=== PATIENT | male | born 1950 | race Two or more races ===

== ENCOUNTER → 2017-02-11 | Emergency (ER) | payer MEDICARE, OTHER ==
[~2017-02-11] MED LIST: LEVOFLOXACIN 250 MG TABLET (FP) ONE; LEVOFLOXACIN 250 MG TABLET (FP) PO ONE; LEVOFLOXACIN 500 MG TABLET (FP) ONE; LEVOFLOXACIN 750 MG TABLET PO SCH; metroNIDAZOLE 250 MG TABLET PO ONE
[2017-02-11 12:06] VITALS: BMI 29.3
--- NOTE | 2017-02-11 12:23 | PDOC ---
History of Present Illness - History of Present Illness Initial Comments: 02/11/17 13:37 The patient is a 66 year old male, peruvian speaking, with a significant past medical history of rectal fissure, gastritis, and GERD, who presents to the emergency department with hematochezia for 2 weeks with onset of diarrhea 10 days ago. The patient reports experiencing at least 3 episodes of loose stool daily which contains bright red blood. He denies any melena. He also reports a mild, intermittent suprapubic and right lower quadrant pain. The patient states he had an endoscopy and colonoscopy 2 months ago which the patient states were negative, "other than the rectal fissure." The patient states he was taking aspirin, however, reports discontinuing the aspiring when he noticed the blood in his stool. He denies hemorrhoids or itching of his anus. Secondarily, the patient reports experiencing chills and diaphoresis at night before bed. He denies chest pain, shortness of breath, headache and dizziness. He denies fever, nausea, vomit, and constipation. He denies dysuria, frequency, urgency and hematuria. Allergies: NKDA PCP - Dr. 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) Appendectomy: No Cardiac Surgery: No Cholecystectomy: No Lung Surgery: No Neurologic Surgery: No Orthopedic Surgery: No - Immunization History Td Vaccination: No Immunization Up to Date: Yes - Psycho/Social/Smoking Cessation Hx Anxiety: No Suicidal Ideation: No Smoking Status: No Smoking History: Never smoked Have you smoked in the past 12 months: No Number of Cigarettes Smoked Daily: 0 If you are a former smoker, when did you quit?: 10YRS AGO Cigars Per Day: 0 Information on smoking cessation initiated: No Hx Alcohol Use: No Drug/Substance Use Hx: No Substance Use Type: None Hx Substance Use Treatment: No <Johnathan Vergara - Last Filed: 02/11/17 19:32> - Past Medical History Allergies/Adverse Reactions: Allergies Allergy/AdvReac Type Severity Reaction Status Date / Time No Known Allergies Allergy Verified 02/11/17 12:06 Home Medications: Ambulatory Orders Lisinopril/Hydrochlorothiazide [Zestoretic 10-12.5 Tablet] 1 each PO DAILY #0 tablet 12/04/11 Simvastatin [Zocor -] 10 mg PO DAILY 11/19/15 Tamsulosin HCl [Flomax -] 0.4 mg PO DAILY 11/19/15 Aspirin [ASA -] 81 mg PO DAILY 03/10/16 Pantoprazole Sodium [Protonix] 40 mg PO DAILY 03/10/16 Ciprofloxacin [Cipro (Restricted To Id)] 750 mg PO BID #20 tablet 02/11/17 Metformin HCl 500 mg PO BID 02/11/17 Metronidazole [Flagyl -] 500 mg PO TID #30 tablet 02/11/17 Review of Systems - Review of Systems Able to Perform ROS?: Yes Comments:: 02/11/17 13:52 GENERAL/CONSTITUTIONAL: No fever or chills. No weakness. HEAD, EYES, EARS, NOSE AND THROAT: No change in vision. No ear pain or discharge. No sore throat. CARDIOVASCULAR: No chest pain or shortness of breath. RESPIRATORY: No cough, wheezing, or hemoptysis. GASTROINTESTINAL: (+) hematochezia and suprapbic abdominal pain. No nausea, vomiting, diarrhea or constipation. GENITOURINARY: No dysuria, frequency, or change in urination. MUSCULOSKELETAL: No joint or muscle swelling or pain. No neck or back pain. SKIN: No rash NEUROLOGIC: No headache, vertigo, loss of consciousness, or change in strength/ sensation. ENDOCRINE: No increased thirst. No abnormal weight change. HEMATOLOGIC/LYMPHATIC: No anemia, easy bleeding, or history of blood clots. ALLERGIC/IMMUNOLOGIC: No hives or skin allergy. <Taina Zamora - Last Filed: 02/11/17 18:57> *Physical Exam - Vital Signs Last Vital Signs Temp Pulse Resp BP Pulse Ox 98.2 F 89 18 107/57 100 02/11/17 12:04 02/11/17 12:04 02/11/17 12:04 02/11/17 12:04 02/11/17 12:04 - Physical Exam Comments: 02/11/17 13:53 GENERAL: Awake, alert, and fully oriented, in no acute distress HEAD: No signs of trauma EYES: PERRLA, EOMI, sclera anicteric, conjunctiva clear ENT: Auricles normal inspection, hearing grossly normal, nares patent, oropharynx clear without exudates. Moist mucosa NECK: Normal ROM, supple, no lymphadenopathy, JVD, or masses LUNGS: Breath sounds equal, clear to auscultation bilaterally. No wheezes, and no crackles HEART: Regular rate and rhythm, normal S1 and S2, no murmurs, rubs or gallops ABDOMEN: Soft, nontender, normoactive bowel sounds. No guarding, no rebound. No masses EXTREMITIES: Normal range of motion, no edema. No clubbing or cyanosis. No cords, erythema, or tenderness NEUROLOGICAL: Cranial nerves II through XII grossly intact. Normal speech, normal gait SKIN: Warm, Dry, normal turgor, no rashes or lesions noted. <Taina Zamora - Last Filed: 02/11/17 18:57> - Vital Signs Last Vital Signs Temp Pulse Resp BP Pulse Ox 98.2 F 89 18 107/57 100 02/11/17 12:04 02/11/17 12:04 02/11/17 12:04 02/11/17 12:04 02/11/17 12:04 <Johnathan Vergara - Last Filed: 02/11/17 19:32> Heart Score/ECG Review - ECG Intrepretation Comment:: 02/11/17 13:00 EKG was read by Dr. Vergara at 12:25 Impression: Normal sinus rhythm <Taina Zamora - Last Filed: 02/11/17 18:57> ED Treatment Course - LABORATORY CBC & Chemistry Diagram: 02/11/17 12:54 02/11/17 13:45 - RADIOLOGY Radiograph Interpretation: 02/11/17 15:22 CXR was read by Dr. Friend at 13:16 Impression: No acute pathology. No significant changes. Abdomen/Pelvis CT was read by Dr. Branch at 18:21 Impression: In comparison to a prior CT frm 12/07/15, interval development of concentric rectal wall thickening is noted with associated perirectal edema consistent with inflammation or infection. There us also probable interval development of cystitis. <Taina Zamora - Last Filed: 02/11/17 18:57> - LABORATORY CBC & Chemistry Diagram: 02/11/17 12:54 02/11/17 13:45 <Johnathan Vergara - Last Filed: 02/11/17 19:32> Medical Decision Making - Medical Decision Making 02/11/17 18:55 The patient is a 66 year old male who presents with hematochezia, loose stools and night sweats for 2 weeks. The patients medical history is significant for rectal fissure, GERD, and gastritis I will obtain abdomen pelvis CT, CXR, stool culture to rule out diverticulitis, gastritis. <Taina Zamora - Last Filed: 02/11/17 18:57> *DC/Admit/Observation/Transfer - Attestations Scribe Attestion: 02/11/17 13:53 Documentation prepared by Taina Zamora, acting as medical technical writer for Johnathan Vergara MD <Taina Zamora - Last Filed: 02/11/17 18:57> - Attestations Physician Attestion: 02/11/17 12:23 I, Dr. Johnathan Vergara, attest that this document has been prepared under my direction and personally reviewed by me in its entirety. I further attest, that it accurately reflects all work, treatment, procedures and medical decision -making performed by me. <Johnathan Vergara - Last Filed: 02/11/17 19:32> Diagnosis at time of Disposition: Proctitis - Discharge Dispostion Disposition: HOME Condition at time of disposition: Stable - Prescriptions Prescriptions: Ciprofloxacin [Cipro (Restricted To Id)] 750 mg PO BID #20 tablet Metronidazole [Flagyl -] 500 mg PO TID #30 tablet - Referrals Referrals: Isaiah Garvey MD [Primary Care Provider] - - Patient Instructions Printed Discharge Instructions: DI for Rectal Bleeding Additional Instructions: Dez, you have an infection of your rectum. It will take at least a week of antibiotics to start clearing up. Follow up with your [facility]. Return to us if worse or problems. Carlos- DR. Johnathan Vergara
[2017-02-11 13:57] LABS: BASOPHIL 0.5 % (0-2.0); MCH 26.1 pg (25.7-33.7); MCHC 33.3 g/dl (32.0-35.9); MEAN CELL VOLUME 78.5 fl (80-96); MEAN PLT VOLUME 8.2 fl (7.5-11.1); PLATELET COUNT 200 K/MM3 (134-434); RDW 13.6 % (11.9-15.9); WHITE BLOOD COUNT 6.5 K/mm3 (4.0-10.0)
--- NOTE | 2017-02-11 14:01 | EKG ---
Test Reason : Blood Pressure : / mmHG Vent. Rate : 087 BPM Atrial Rate : 087 BPM P-R Int : 142 ms QRS Dur : 080 ms QT Int : 346 ms P-R-T Axes : 025 -20 018 degrees QTc Int : 416 ms NORMAL SINUS RHYTHM NORMAL ECG WHEN COMPARED WITH ECG OF 04-DEC-2011 18:10, NO SIGNIFICANT CHANGE WAS FOUND Confirmed by ERYN CUNNINGHAM MD ([id number]) on 02/11/2017 2:01:03 PM Referred By: Confirmed By:ERYN CUNNINGHAM MD
[2017-02-11 14:20] LABS: ALBUMIN 3.6 g/dl (3.4-5.0); ANION GAP 12 (8-16); CALCIUM 9.3 mg/dL (8.5-10.1); CO2 25 mmol/L (21-32); COCKROFT - GAULT 99.59; CREATININE 1.1 mg/dL (0.7-1.3); GLUCOSE,RANDOM 133 mg/dL (74-106); SGOT/AST 15 U/L (15-37); SGPT/ALT 16 U/L (12-78)
[2017-02-11 14:23] LABS: INR 0.98 (0.82-1.09); PROTHROMBIN TIME (PATIENT) 10.8 SEC (9.98-11.88)
[2017-02-11 14:24] LABS: ALK PHOS 80 U/L (45-117); BILIRUBIN,TOTAL 0.4 mg/dL (0.2-1.0); TOT PROT 6.7 g/dl (6.4-8.2); TROPONIN I < 0.02 ng/ml (0.00-0.05)
[2017-02-11 19:02] VITALS: TEMP 98.6
[2017-02-11 20:10] VITALS: BP 131/91; PULSE 88
== END | disposition home or self-care (01) ==
LOC: JER 11:43
DX: K62.89 Other specified diseases of anus and rectum (principal); K60.2 Anal fissure, unspecified; K21.9 Gastro-esophageal reflux disease without esophagitis; I10 Essential (primary) hypertension; E11.9 Type 2 diabetes mellitus without complications; Z79.84 Long term (current) use of oral hypoglycemic drugs
CPT/HCPCS: 36415; 71010-TC; 74177-TC; 80053; 82550; 83690; 84484; 85025; 85610; 86850; 86900; 86901; 87045; 87046; 87205; 93005; 93010; 99284-25

== ENCOUNTER 2017-10-15 14:41 | Emergency (ER) | payer MEDICARE, OTHER ==
[2017-10-15 15:19] VITALS: BMI 28.5
--- NOTE | 2017-10-15 15:19 | PDOC ---
Rapid Medical Evaluation Time Seen by Provider: 10/15/17 15:13 Medical Evaluation: Allergies Allergy/AdvReac Type Severity Reaction Status Date / Time No Known Allergies Allergy Verified 02/11/17 12:06 10/15/17 15:13 I have performed a brief in-person evaluation of this patient. The patient presents with a chief complaint of: Diarrhea w/ abd pain and nausea x 2 weeks, no recent travel, sick contact or unusual food. Last abx 2 months ago for dental extraction. H/o HTN, DM, prostate CA s/p chemo/xrt Pertinent physical exam findings:Stable w/ benign abd I have ordered the following:cbc/labs/stool studies The patient will proceed to the ED for further evaluation. 10/15/17 15:18 Discharge Disposition - Referrals Referrals: Anup Mcknight MD [Primary Care Provider] - - Patient Instructions - Post Discharge Activity
--- NOTE | 2017-10-15 15:52 | PDOC ---
History of Present Illness - General History Source: Patient Exam Limitations: No Limitations - History of Present Illness Initial Comments: 10/15/17 17:28 The patient is a 67 year old male with a significant PMH of prostate CA, diabetes, HTN, and hyperlipidemia who presents to the emergency department with nausea diarrhea beginning approximately 2 weeks ago. The patient describes his diarrhea as soft and liquidy with no blood that usually comes on in the morning. He notes an associated crampy and nauseous sensation in his abdomen. The patient also notes that he has been intermittently sweaty recently, which he notes his Urologist stated may be a side effect of one of his medications. The patient denies any changes in his medication or diet. He denies any recent travel or sick contacts. He denies any changes in sexual partners. The patient denies chest pain, shortness of breath, headache and dizziness. Denies fever, chills, vomit, and constipation. Denies dysuria, frequency, urgency and hematuria. FMHx: Colon CA, Breast CA Allergies: NKA Past surgical history: Herniated disc repair. Social history: Former smoker (25 years ago). Minimal alcohol use. No reported drug use. PCP: Dr. Mcknight Oncologist: Dr. Brent Tidwell Urologist: Dr. 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) Appendectomy: No Cardiac Surgery: No Cholecystectomy: No Lung Surgery: No Neurologic Surgery: No Orthopedic Surgery: No - Immunization History Td Vaccination: No Immunization Up to Date: Yes - Suicide/Smoking/Psychosocial Hx Smoking Status: No Smoking History: Never smoked Have you smoked in the past 12 months: No Number of Cigarettes Smoked Daily: 0 If you are a former smoker, when did you quit?: 10YRS AGO Cigars Per Day: 0 Information on smoking cessation initiated: No Hx Alcohol Use: No Drug/Substance Use Hx: No Substance Use Type: None Hx Substance Use Treatment: No <Nabila David - Last Filed: 10/15/17 18:26> - Past Medical History Allergies/Adverse Reactions: Allergies Allergy/AdvReac Type Severity Reaction Status Date / Time No Known Allergies Allergy Verified 10/15/17 15:19 Home Medications: Ambulatory Orders Lisinopril/Hydrochlorothiazide [Zestoretic 10-12.5 Tablet] 1 each PO DAILY #0 tablet 12/04/11 Simvastatin [Zocor -] 10 mg PO DAILY 11/19/15 Tamsulosin HCl [Flomax -] 0.4 mg PO DAILY 11/19/15 Pantoprazole Sodium [Protonix] 40 mg PO DAILY 03/10/16 Metformin HCl 500 mg PO BID 02/11/17 Review of Systems - Review of Systems Able to Perform ROS?: Yes Comments:: 10/15/17 17:28 GENERAL/CONSTITUTIONAL: No fever or chills. No weakness. HEAD, EYES, EARS, NOSE AND THROAT: No change in vision. No ear pain or discharge. No sore throat. CARDIOVASCULAR: No chest pain or shortness of breath. RESPIRATORY: No cough, wheezing, or hemoptysis. GASTROINTESTINAL: (+) Diarrhea. (+) Nausea. (+) Cramping. No vomiting or constipation. GENITOURINARY: No dysuria, frequency, or change in urination. MUSCULOSKELETAL: No joint or muscle swelling or pain. No neck or back pain. SKIN: No rash NEUROLOGIC: No headache, vertigo, loss of consciousness, or change in strength/ sensation. ENDOCRINE: No increased thirst. No abnormal weight change. HEMATOLOGIC/LYMPHATIC: No anemia, easy bleeding, or history of blood clots. ALLERGIC/IMMUNOLOGIC: No hives or skin allergy. <Marlon Multani - Last Filed: 10/15/17 17:29> *Physical Exam - Vital Signs Last Vital Signs Temp Pulse Resp BP Pulse Ox 99.0 F 83 18 117/74 100 10/15/17 15:16 10/15/17 15:16 10/15/17 15:16 10/15/17 15:16 10/15/17 16:22 - Physical Exam Comments: 10/15/17 17:28 GENERAL: Awake, alert, and fully oriented, in no acute distress HEAD: No signs of trauma EYES: PERRLA, EOMI, sclera anicteric, conjunctiva clear ENT: Auricles normal inspection, hearing grossly normal, nares patent, oropharynx clear without exudates. Moist mucosa NECK: Normal ROM, supple, no lymphadenopathy, JVD, or masses LUNGS: Breath sounds equal, clear to auscultation bilaterally. No wheezes, and no crackles HEART: Regular rate and rhythm, normal S1 and S2, no murmurs, rubs or gallops ABDOMEN: (+) Slightly hyperactive bowel sounds. Soft, nontender. No guarding, no rebound. No masses EXTREMITIES: Normal range of motion, no edema. No clubbing or cyanosis. No cords, erythema, or tenderness NEUROLOGICAL: Cranial nerves II through XII grossly intact. Normal speech, normal gait SKIN: Warm, Dry, normal turgor, no rashes or lesions noted. <Marlon Multani - Last Filed: 10/15/17 17:29> - Vital Signs Last Vital Signs Temp Pulse Resp BP Pulse Ox 99.0 F 83 18 117/74 100 10/15/17 15:16 10/15/17 15:16 10/15/17 15:16 10/15/17 15:16 10/15/17 15:16 <Nabila David - Last Filed: 10/15/17 18:26> ED Treatment Course - LABORATORY CBC & Chemistry Diagram: 10/15/17 15:31 10/15/17 15:31 - ADDITIONAL ORDERS Additional order review: Laboratory Results 10/15/17 15:31 Sodium 139 Potassium 4.2 Chloride 105 Carbon Dioxide 23 Anion Gap 11 BUN 22 H Creatinine 1.2 Creat Clearance w eGFR > 60 Random Glucose 157 H Calcium 8.7 Total Bilirubin 0.3 D AST 12 L ALT 18 Alkaline Phosphatase 98 D Total Protein 6.8 Albumin 3.9 10/15/17 15:31 RBC 4.75 MCV 78.9 L MCHC 32.6 RDW 13.7 MPV 8.3 Neutrophils % 71.8 Lymphocytes % 15.9 Monocytes % 7.0 Eosinophils % 5.0 H Basophils % 0.3 <Marlon Multani - Last Filed: 10/15/17 17:29> - LABORATORY CBC & Chemistry Diagram: 10/15/17 15:31 10/15/17 15:31 <Nabila David - Last Filed: 10/15/17 18:26> *DC/Admit/Observation/Transfer - Attestations Scribe Attestion: 10/15/17 17:28 Documentation prepared by Marlon Multani, acting as medical record assistant for Nabila David MD. <Marlon Multani - Last Filed: 10/15/17 17:29> - Discharge Dispostion Admit: No <Nabila David - Last Filed: 10/15/17 18:26> Diagnosis at time of Disposition: Diarrhea Qualifiers: Diarrhea type: unspecified type Qualified Code(s): R19.7 - Diarrhea, unspecified - Discharge Dispostion Disposition: HOME Condition at time of disposition: Stable - Referrals Referrals: Anup Mcknight MD [Primary Care Provider] - - Patient Instructions - Post Discharge Activity
[2017-10-15 15:53] LABS: BASO % 0.3 % (0-2.0); HEMATOCRIT 37.5 % (35.4-49); HEMOGLOBIN 12.2 GM/dL (11.7-16.9); LYMPH % 15.9 % (8-40); MCH 25.7 pg (25.7-33.7); MCHC 32.6 g/dl (32.0-35.9); MEAN CELL VOLUME 78.9 fl (80-96); MEAN PLT VOLUME 8.3 fl (7.5-11.1); NEUT % 71.8 % (42.8-82.8); PLATELET COUNT 228 K/MM3 (134-434); RBC 4.75 M/mm3 (4.00-5.60); RDW 13.7 % (11.9-15.9); WHITE BLOOD COUNT 6.5 K/mm3 (4.0-10.0)
[2017-10-15 16:21] LABS: ALBUMIN 3.9 g/dl (3.4-5.0); ALK PHOS 98 U/L (45-117); ANION GAP 11 (8-16); BILIRUBIN,TOTAL 0.3 mg/dL (0.2-1.0); BLOOD UREA NITROGEN 22 mg/dL (7-18); CALCIUM 8.7 mg/dL (8.5-10.1); CHLORIDE 105 mmol/L (98-107); CO2 23 mmol/L (21-32); CREATININE 1.2 mg/dL (0.7-1.3); GLUCOSE,RANDOM 157 mg/dL (74-106); POTASSIUM 4.2 mmol/L (3.5-5.1); SGOT/AST 12 U/L (15-37); SGPT/ALT 18 U/L (12-78); SODIUM 139 mmol/L (136-145); TOT PROT 6.8 g/dl (6.4-8.2)
[2017-10-15] MEDS ORDERED: SODIUM CHLORIDE 1,000 ML IV STA (17:27)
[2017-10-15 19:17] VITALS: BP 123/71; PULSE 78; TEMP 98.2
== END 2017-10-15 19:17 | disposition home or self-care (01) ==
LOC: JER 14:41
PROC: 3E0337Z Introduction of Electrolytic and Water Balance Substance into Peripheral Vein, Percutaneous Approach (ICD-10-PCS; principal; 2017-10-15)
DX: R19.7 Diarrhea, unspecified (principal); Z85.46 Personal history of malignant neoplasm of prostate; E11.9 Type 2 diabetes mellitus without complications; I10 Essential (primary) hypertension; Z87.891 Personal history of nicotine dependence
CPT/HCPCS: 36415; 74177-TC; 80053; 83690; 85025; 96360; 99283-25

== ENCOUNTER 2023-08-26 15:55 | Emergency (ER) | payer OTHER ==
[2023-08-26 16:21] VITALS: BP 129/75; PULSE 83; RESP 17; TEMP 98.5; BMI 28.7
[2023-08-26] MEDS ORDERED: SODIUM CHLORIDE 1,000 ML IV STA (17:13)
[2023-08-26] MEDS ORDERED: FAMOTIDINE 20 MG/50 ML IVPB 20 MG/50 ML MG IVPB ONE ×2 (17:13→17:42)
[2023-08-26] MEDS ORDERED: MAG HYDROX/AL HYDROX/SIMETH 30 ML UNIT-DOSE CUP PO ONE (17:14)
[2023-08-26] MEDS ORDERED: ONDANSETRON 4 MG/2 ML VIAL IVPUSH ONE (17:15)
[2023-08-26 17:39] LABS: BASO % 0.6 % (0-2.0); EOS % 2.5 % (0-4.5); HEMOGLOBIN 12.3 GM/dL (11.7-16.9); MCH 24.7 pg (25.7-33.7); MCHC 32.3 g/dl (32.0-35.9); MEAN CELL VOLUME 76.4 fl (80-96); MEAN PLT VOLUME 8.1 fl (7.5-11.1); MONO % 18.2 % (3.8-10.2); NEUT % 66.7 % (42.8-82.8); PLATELET COUNT 187 10^3/uL (134-434); RBC 4.98 M/mm3 (4.00-5.60); RDW 15.5 % (11.9-15.9); WHITE BLOOD COUNT 6.6 K/mm3 (4.0-10.0)
[2023-08-26] MEDS ORDERED: ONDANSETRON 4 MG/2 ML VIAL ONE (17:41)
[2023-08-26] MEDS ORDERED: MAG HYDROX/AL HYDROX/SIMETH 30 ML UNIT-DOSE CUP ONE (17:41)
[2023-08-26 17:44] LABS: INR 1.06 (0.83-1.09); PROTHROMBIN TIME (PATIENT) 12.3 SEC (9.7-13.0)
[2023-08-26 17:46] LABS: ACTIVATED PTT 29.2 SECONDS (25.2-36.5)
[2023-08-26 17:59] LABS: POTASSIUM 4.4 mmol/L (3.5-5.1)
[2023-08-26 18:02] LABS: CALCIUM 8.9 mg/dL (8.5-10.1)
[2023-08-26 18:03] LABS: ALBUMIN 3.4 g/dl (3.4-5.0); BLOOD UREA NITROGEN 19.4 mg/dL (7-18)
[2023-08-26 18:06] LABS: CREATININE 1.4 mg/dL (0.55-1.3)
[2023-08-26 18:08] LABS: BILIRUBIN,TOTAL 0.4 mg/dL (0.2-1); TOT PROT 6.5 g/dl (6.4-8.2)
[2023-08-26 18:50] LABS: URINE APPEARANCE CLEAR; URINE BILIRUBIN NEGATIVE (NEGATIVE); URINE COLOR YELLOW; URINE GLUCOSE (UA) TRACE (NEGATIVE); URINE KETONE TRACE (NEGATIVE); URINE LEUK ESTERASE NEGATIVE (NEGATIVE); URINE NITRITE NEGATIVE (NEGATIVE); URINE PROTEIN NEGATIVE (NEGATIVE); URINE UROBILINOGEN 0.2 mg/dL (0.2-1.0)
== END 2023-08-26 21:16 | disposition home or self-care (01) ==
LOC: JER 15:55
PROC: 3E033GC Introduction of Other Therapeutic Substance into Peripheral Vein, Percutaneous Approach (ICD-10-PCS; principal; 2023-08-26)
PROC: 3E033GC Introduction of Other Therapeutic Substance into Peripheral Vein, Percutaneous Approach (ICD-10-PCS; 2023-08-26)
DX: U07.1 COVID-19 (principal); R10.13 Epigastric pain; R11.0 Nausea; R53.83 Other fatigue; R68.83 Chills (without fever); Z20.822 Contact with and (suspected) exposure to COVID-19
CPT/HCPCS: 0241U-QW; 36415; 71046-TC-FY; 74177-TC; 80053; 81003; 83690; 84484; 85025; 85610; 85730; 87086; 93005; 93010; 96365; 96375; 99285-25; Q9967

== ENCOUNTER 2025-04-06 06:16 | Day surgery (SDC) | payer OTHER ==
[2025-04-05 10:33] VITALS: BMI 28.1
[2025-04-06 08:23] VITALS: TEMP 97.5
[2025-04-06 10:06] VITALS: BP 111/67; PULSE 62; RESP 18
== END 2025-04-06 10:40 | disposition home or self-care (01) ==
LOC: JASU-ENDO 06:16
PROVIDERS: ATTEND Internal Medicine Gastroenterology
PROC: 0DBP8ZX Excision of Rectum, Via Natural or Artificial Opening Endoscopic, Diagnostic (ICD-10-PCS; principal; 2025-04-06 10:00)
DX: Z12.11 Encounter for screening for malignant neoplasm of colon (principal); D12.8 Benign neoplasm of rectum; Z86.0100 Personal history of colon polyps, unspecified
CPT/HCPCS: 82962; 88305-TC